=== PATIENT | female | born 1930 | race Caucasian/White ===

== ENCOUNTER 2020-03-14 08:05 | Outpatient (CLI) | payer MEDICARE, OTHER ==
[2020-03-14] MEDS ORDERED: Iopamidol 370 76% 100 ML VIAL ONE (09:25)
--- NOTE | 2020-03-14 13:07 | NM ---
Nuclear medicine parathyroid SPECT and scintigraphy: DATE: 03/14/2020 HISTORY: 81-year-old Female with hyperparathyroidism and hypercalcemia TECHNIQUE: IV injection of 25.0 mCi Tc99m sestamibi. 3 view scintigraphic images of upper chest, neck, and head, immediately, at one hour, and 2 hours. SPECT in 3 planes from upper chest to skull base. Noncontrast CT from upper chest to skull base. SPECT-CT fusion. FINDINGS: Heterogeneous uptake in left and right lobes of thyroid gland. Homogeneous uptake throughout bilateral submandibular glands. There is no definite focus of uptake outside of the thyroid gland and outside of the submandibular gl ands, that would be a candidate for parathyroid adenoma. No focus of increased uptake at the uppermost portion of esophagus that would correspond to the tiny focus of enhancement in that region on today's CT. A sestamibi scan report of 02/17/2020 from [facility] in [place], [place], mentions focu s of increased uptake in the right axilla. The images from that study are not available for review. There is no focus of increased uptake in the right axilla on the current sestamibi scan, and there is no suspicious right axillary mass on today's CT. IMPRESSION: No parathyroid adenoma identified
--- NOTE | 2020-03-14 13:15 | CT ---
CT NECK WITH AND WITHOUT CONTRAST: (Parathyroid protocol) DATE: 03/14/2020 HISTORY: [id number] with hypercalcemia and hyperparathyroidism. TECHNIQUE: Precontrast scan, 25 seconds postcontrast scan, and 65 second postcontrast scan, from several centime ters inferior to the anton to the skull base. Coronal and sagittal reconstructions. FINDINGS: Visible only on the 65 second postcontrast delayed scan, there is a tiny, approximately 0.4 x 0.4 x 0 .5 cm blush of focal enhancement near the junction between the upper most esophagus and the pharyngeal constrictor musculature. It is located 1 cm posterior to the posterior surface of the trac heal lumen at the T7 level (axial image 47 of 89, series 6; sagittal image 90 of 180 series 602; coronal image 66 of 154 series 601). However, it does not have increased sestamibi uptake on the nucl ear medicine scan, and is therefore unlikely to represent a parathyroid adenoma. A report of a nuclear medicine sestamibi parathyroid scan of 02/17/2020 from [facility] in [place], [place] mentions a focus of increased uptake in the right axilla. There is no suspicious axillary mass or mediastinal mass on the CT, and no such uptake on the nuclear medicine se stamibi scan performed today at this institution. There is no good candidate for parathyroid adenoma. IMPRESSION: No good candidate for parathyroid adenoma identified.
== END 2020-03-14 08:06 | disposition home or self-care (01) ==
LOC: CT 08:05
PROVIDERS: ATTEND Otolaryngology Plastic Surgery within the Head & Neck
DX: E83.52 Hypercalcemia (principal)
CPT/HCPCS: 70492; 78072; 82565; A9500; Q9967